=== PATIENT | male | born 1965 | race African-American/Black ===

== ENCOUNTER 2016-06-18 10:40 | Emergency (ER) | payer OTHER ==
[~2016-06-18] VITALS: Ht 185.4 cm; Wt 103.0 kg
[~2016-06-18 10:40] MED LIST: ASPIR 8181 MG PO; ASPIRIN81 M2 PO; CIPROFLOXACIN500 M1 PO; IBUPROFEN 600600 M1 PO; LISINOPRIL20 MG PO; MEDROL DOSPAK21 TAB PO; NAPROSYN500 MG PO; NAPROXEN DELAY500 M1 PO; NORCO 5-325 TA1 EACH PO; PERCOCET 5-3251 EACH PO; PREDNISONE 20 M20 MG PO; ZANTAC 150MG T150 M1 PO; ZOFRAN ODT4 MG PO
[2016-06-18] MEDS ORDERED: NEOMYCIN-POLY-7.5 ML OP (12:27)
[2016-06-18] MEDS ORDERED: AUGMENTIN 875875 MG PO (12:27)
[2016-06-18] MEDS ORDERED: PREDNISONE 20 M20 MG PO (12:27)
[2016-06-18] MEDS ORDERED: FLEXERIL PO (12:27)
[2016-06-18] MEDS ORDERED: ZYRTEC10 M2 PO (12:27)
[2016-06-18 12:42] VITALS: BP 177/108
[2016-06-18] MEDS ORDERED: NORCO 5-325 TA1 EACH PO (12:46)
== END 2016-06-18 12:55 | disposition home or self-care (01) ==
LOC: ER 10:40
DX: S39.012A Strain of muscle, fascia and tendon of lower back, initial encounter (principal); J32.9 Chronic sinusitis, unspecified; H10.9 Unspecified conjunctivitis; I10 Essential (primary) hypertension; F17.210 Nicotine dependence, cigarettes, uncomplicated; F10.99 Alcohol use, unspecified with unspecified alcohol-induced disorder; V49.88XA Car occupant (driver) (passenger) injured in other specified transport accidents, initial encounter; Y93.89 Activity, other specified; Y92.9 Unspecified place or not applicable; Y99.9 Unspecified external cause status

== ENCOUNTER 2016-11-02 00:28 | Emergency (ER) | payer OTHER ==
[~2016-11-02] VITALS: Ht 188 cm; Wt 105.2 kg
[~2016-11-02 00:28] MED LIST changes: +AUGMENTIN 875875 MG PO; +FLEXERIL PO; +NEOMYCIN-POLY-7.5 ML OP; +ZYRTEC10 M2 PO
[2016-11-02 00:50] LABS: HEMATOCRIT 42.4 % (42.0-52.0); HEMOGLOBIN 14.5 gm/dL (14.0-18.0); MCH 35.7 pg (26.0-34.0); MCHC 34.3 g/dL (28.0-37.0); RBC 4.07 mil/uL (4.50-6.00); RDW 14.2 % (10.5-14.5); WBC 12.7 thou/uL (4.0-11.0)
[2016-11-02 00:57] LABS: CALCIUM 8.9 mg/dL (8.5-10.1); CREATININE 1.2 mg/dL (0.7-1.3); POTASSIUM 3.1 mmol/L (3.5-5.1)
[2016-11-02 01:02] LABS: ALBUMIN 3.9 g/dL (3.4-5.0); PROTIME 10.6 Seconds (9.3-11.4); TOTAL BILIRUBIN 0.4 mg/dL (<0.1-1.0); TOTAL PROTEIN 7.9 g/dL (6.4-8.2)
[2016-11-02] MEDS ORDERED: TRAMADOL 50 MG50 MG PO (02:32)
[2016-11-02 02:55] VITALS: BP 137/110
== END 2016-11-02 03:07 ==
LOC: ER 00:28
PROVIDERS: Nurse Practitioner Family
DX: S02.2XXA Fracture of nasal bones, initial encounter for closed fracture (principal); S01.81XA Laceration without foreign body of other part of head, initial encounter; S41.011A Laceration without foreign body of right shoulder, initial encounter; E87.6 Hypokalemia; F10.129 Alcohol abuse with intoxication, unspecified; I10 Essential (primary) hypertension; F17.210 Nicotine dependence, cigarettes, uncomplicated; Y90.7 Blood alcohol level of 200-239 mg/100 ml; Y08.89XA Assault by other specified means, initial encounter; Y93.89 Activity, other specified; Y92.89 Other specified places as the place of occurrence of the external cause; Y99.8 Other external cause status

== ENCOUNTER 2016-12-30 10:30 | Emergency (ER) | payer OTHER ==
[~2016-12-30] VITALS: Ht 188 cm; Wt 100.7 kg
[~2016-12-30 10:30] MED LIST changes: +TRAMADOL 50 MG50 MG PO
[2016-12-30 10:43] VITALS: BP 159/110
== END 2016-12-30 11:05 | disposition home or self-care (01) ==
LOC: ER 10:30
DX: S41.011D Laceration without foreign body of right shoulder, subsequent encounter (principal); I10 Essential (primary) hypertension; F17.210 Nicotine dependence, cigarettes, uncomplicated; F10.99 Alcohol use, unspecified with unspecified alcohol-induced disorder; Z98.890 Other specified postprocedural states; X58.XXXD Exposure to other specified factors, subsequent encounter; Y92.89 Other specified places as the place of occurrence of the external cause; Y99.8 Other external cause status

== ENCOUNTER 2017-01-21 18:48 | Emergency (ER) | payer OTHER ==
[~2017-01-21] VITALS: Ht 188 cm; Wt 108.0 kg
--- NOTE | ~2017-01-21 | EKG ---
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: [place] : 1965 Requested By: Val Gregg Order Number: [id number] MD: Román Hernandez Measurements Intervals [place] Rate: 77 P: 26 [place]: 136 QRS: 0 QRSD: 88 T: 12 QT: 401 QTc: 454 Interpretive Statements Sinus rhythm Baseline wander in lead(s) I,III,aVL Compared to ECG 12/24/2015 03:35:24 No significant change was found Electronically Signed On 01-22-2017 9:04:14 CDT by Román Hernandez [email or web address] <ELECTRONICALLY SIGNED> By: Román Hernandez MD, [facility] 01/22/17 0904 54 Román Hernandez MD, [facility] /EPI
[2017-01-21 19:27] LABS: ABSOLUTE NEUTROPHILS 6.2 thou/uL (1.4-8.2); BASOPHILS 1.6 % (0.0-2.0); EOSINOPHILS 3.8 % (0.0-3.0); HEMATOCRIT 42.1 % (42.0-52.0); HEMOGLOBIN 14.4 gm/dL (14.0-18.0); MCH 34.8 pg (26.0-34.0); MCHC 34.2 g/dL (28.0-37.0); MCV 101.6 fL (80.0-100.0); PLATELET COUNT 243 thou/uL (150-400); POLYS 58.6 % (36.0-66.0); RBC 4.15 mil/uL (4.50-6.00); RDW 13.4 % (10.5-14.5); WBC 10.6 thou/uL (4.0-11.0)
[2017-01-21 19:29] LABS: MANUAL DIFF NO
[2017-01-21 19:37] LABS: ANION GAP 9 mmol/L (7-16); BUN 9 mg/dL (7-18); CALCIUM 8.9 mg/dL (8.5-10.1); CHLORIDE 101 mmol/L (98-107); CO2 28 mmol/L (21-32); CREATININE 1.1 mg/dL (0.7-1.3); GLUCOSE 95 mg/dL (74-106); SODIUM 138 mmol/L (136-145)
[2017-01-21 19:46] LABS: TROPONIN-I < 0.04 ng/mL (<0.04-0.07)
[2017-01-21] MEDS ORDERED: ATIVAN0.5 MG PO (20:15)
[2017-01-21] MEDS ORDERED: CLONIDINE0.1 PO (20:23)
[2017-01-21 20:34] VITALS: BP 160/99
== END 2017-01-21 20:36 | disposition home or self-care (01) ==
LOC: ER 18:48
PROVIDERS: Emergency Medicine
DX: R00.2 Palpitations (principal); I10 Essential (primary) hypertension; F17.210 Nicotine dependence, cigarettes, uncomplicated; F10.99 Alcohol use, unspecified with unspecified alcohol-induced disorder; Z98.890 Other specified postprocedural states

== ENCOUNTER 2017-02-24 18:59 | Emergency (ER) | payer OTHER ==
[~2017-02-24] VITALS: Ht 188 cm; Wt 103.4 kg
[~2017-02-24 18:59] MED LIST changes: +ATIVAN0.5 MG PO; +CLONIDINE0.1 PO
[2017-02-24 20:40] LABS: ABSOLUTE NEUTROPHILS 6.8 thou/uL (1.4-8.2); BASOPHILS 1.2 % (0.0-2.0); EOSINOPHILS 3.7 % (0.0-3.0); HEMATOCRIT 43.8 % (42.0-52.0); HEMOGLOBIN 14.7 gm/dL (14.0-18.0); LYMPHOCYTES 27.4 % (24.0-44.0); MCH 34.2 pg (26.0-34.0); MCHC 33.6 g/dL (28.0-37.0); MCV 101.6 fL (80.0-100.0); MONOCYTES 7.7 % (1.0-8.0); PLATELET COUNT 262 thou/uL (150-400); RBC 4.31 mil/uL (4.50-6.00); RDW 13.4 % (10.5-14.5); WBC 11.4 thou/uL (4.0-11.0)
[2017-02-24 20:41] LABS: MANUAL DIFF NO
[2017-02-24 20:47] LABS: CALCIUM 9.1 mg/dL (8.5-10.1)
[2017-02-24] MEDS ORDERED: KEFLEX500 MG PO (21:42)
[2017-02-24] MEDS ORDERED: HYDROCODONE-AP1 EAC6 PO (21:44)
[2017-02-24 22:14] VITALS: BP 162/105
== END 2017-02-24 22:15 | disposition home or self-care (01) ==
LOC: ER 18:59
PROVIDERS: Physician Assistant
DX: L03.116 Cellulitis of left lower limb (principal); I83.92 Asymptomatic varicose veins of left lower extremity; I10 Essential (primary) hypertension; F17.210 Nicotine dependence, cigarettes, uncomplicated

== ENCOUNTER 2017-03-06 15:17 | Emergency (ER) | payer OTHER ==
[~2017-03-06] VITALS: Ht 188 cm; Wt 103.4 kg
[~2017-03-06 15:17] MED LIST changes: +HYDROCODONE-AP1 EAC6 PO; +KEFLEX500 MG PO
[2017-03-06 15:57] VITALS: BP 167/111
[2017-03-06] MEDS ORDERED: CIPROFLOXIN HC2.5 M1 OPHTHALMIC (16:15)
[2017-03-06] MEDS ORDERED: MOBIC15 MG PO (16:17)
== END 2017-03-06 16:49 | disposition home or self-care (01) ==
LOC: ER 15:17
DX: S05.01XA Injury of conjunctiva and corneal abrasion without foreign body, right eye, initial encounter (principal); I10 Essential (primary) hypertension; F10.99 Alcohol use, unspecified with unspecified alcohol-induced disorder; W45.8XXA Other foreign body or object entering through skin, initial encounter; Y93.89 Activity, other specified; Y92.89 Other specified places as the place of occurrence of the external cause; Y99.8 Other external cause status

== ENCOUNTER 2017-04-30 22:38 | Emergency (ER) | payer OTHER ==
[~2017-04-30] VITALS: Ht 185.4 cm; Wt 104.3 kg
--- NOTE | ~2017-04-30 | EKG ---
[address] [address] ELECTROCARDIOGRAM REPORT Name: ROSENDO LAGUNAS Devan 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: [facility] : 1965 Requested By: Gilberto Mcneil Order Number: [id number] MD: Raheel Hobson Measurements Intervals [place] Rate: 87 P: 46 [place]: 127 QRS: 3 QRSD: 90 T: 16 QT: 389 QTc: 468 Interpretive Statements Sinus rhythm Atrial premature complex Compared to ECG 01/21/2017 18:55:05 Atrial premature complex(es) now present Electronically Signed On 05-01-2017 11:31:50 OPERATOR COATING FURNACE by Raheel Hobson [email or web address] <ELECTRONICALLY SIGNED> By: Raheel Hobson MD 05/01/17 1131 D: [id number] 17 Raheel Hobson MD /YENNIFER
[~2017-04-30 22:38] MED LIST changes: +CIPROFLOXIN HC2.5 M1 OPHTHALMIC; +MOBIC15 MG PO
[2017-04-30 23:37] LABS: ABSOLUTE NEUTROPHILS 8.1 thou/uL (1.4-8.2); BASOPHILS 1.2 % (0.0-2.0); EOSINOPHILS 2.2 % (0.0-3.0); HEMATOCRIT 39.7 % (42.0-52.0); HEMOGLOBIN 13.4 gm/dL (14.0-18.0); LYMPHOCYTES 22.8 % (24.0-44.0); MCHC 33.7 g/dL (28.0-37.0); MONOCYTES 5.4 % (1.0-8.0); PLATELET COUNT 242 thou/uL (150-400); POLYS 68.4 % (36.0-66.0); RBC 3.93 mil/uL (4.50-6.00); RDW 14.2 % (10.5-14.5); WBC 11.8 thou/uL (4.0-11.0)
[2017-04-30 23:40] LABS: ANION GAP 13 mmol/L (7-16); BUN 17 mg/dL (7-18); CHLORIDE 102 mmol/L (98-107); CO2 25 mmol/L (21-32); CREATININE 1.2 mg/dL (0.7-1.3); GLUCOSE 115 mg/dL (74-106); POTASSIUM 3.6 mmol/L (3.5-5.1); SODIUM 140 mmol/L (136-145)
[2017-04-30 23:44] LABS: MANUAL DIFF NO
[2017-04-30 23:48] LABS: ALBUMIN 3.4 g/dL (3.4-5.0); ALKALINE PHOSPHATASE 71 U/L (46-116); MAGNESIUM 1.9 mg/dL (1.8-2.4); SGOT 74 U/L (15-37); SGPT 38 U/L (30-65); TOTAL BILIRUBIN 0.4 mg/dL (<0.1-1.0); TOTAL PROTEIN 7.1 g/dL (6.4-8.2); TROPONIN-I < 0.04 ng/mL (<0.06)
[2017-04-30 23:54] LABS: APTT 34.5 Seconds (24.5-32.8); PROTIME 10.1 Seconds (9.3-11.4)
[2017-05-01 01:34] VITALS: BP 139/91
== END 2017-05-01 01:35 | disposition left against medical advice (07) ==
LOC: ER 22:38
PROVIDERS: Emergency Medicine
DX: R00.2 Palpitations (principal); R20.0 Anesthesia of skin; I10 Essential (primary) hypertension; M25.512 Pain in left shoulder; K46.9 Unspecified abdominal hernia without obstruction or gangrene; F17.210 Nicotine dependence, cigarettes, uncomplicated

== ENCOUNTER 2018-08-14 19:08 | Emergency (ER) | payer OTHER ==
[~2018-08-14] VITALS: Ht 185.4 cm; Wt 108.0 kg
[2018-08-14 19:46] LABS: HEMATOCRIT 40.8 % (42.0-52.0); MCH 34.9 pg (26.0-34.0); MCHC 34.4 g/dL (28.0-37.0); MCV 101.5 fL (80.0-100.0); RBC 4.01 mil/uL (4.50-6.00); RDW 14.3 % (10.5-14.5); WBC 9.7 thou/uL (4.0-11.0)
[2018-08-14 19:59] LABS: ANION GAP 7 mmol/L (7-16); BUN 13 mg/dL (7-18); CHLORIDE 102 mmol/L (98-107); CO2 30 mmol/L (21-32); GLUCOSE 101 mg/dL (74-106); POTASSIUM 3.8 mmol/L (3.5-5.1); SODIUM 139 mmol/L (136-145)
[2018-08-14 20:07] LABS: ALBUMIN 3.5 g/dL (3.4-5.0); SGOT 35 U/L (15-37); SGPT 54 U/L (30-65); TOTAL BILIRUBIN 0.3 mg/dL (<0.1-1.0); TOTAL PROTEIN 7.5 g/dL (6.4-8.2); TROPONIN-I <0.06 ng/mL (<0.06)
[2018-08-14] MEDS ORDERED: MOBIC15 MG PO (20:26)
[2018-08-14] MEDS ORDERED: NORFLEX100 MG PO (20:26)
[2018-08-14 21:15] VITALS: BP 179/97
--- NOTE | 2018-08-16 08:11 | EKG ---
[place] [address] [facility] [place] [address] ELECTROCARDIOGRAM REPORT Name: ROSENDO LAGUNAS [facility] Room #: [facility]#: [id number] ������������������ Admission: 08/14/18 ������������������ Attend Phys: Discharge: 08/14/18 ������������������ Date of : 69 Report #: [id number] ����������������������������������������������������������������� [id number] THIS REPORT FOR: //name// [facility] ED Test Date: 2018-08-14 Test Time: 19:30:00 Pat Name: ROSENDO LAGUNAS Department: Room: Gender: M 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 Manager: FLEX : 1965 Requested By: Lashae Ornelas Order Number: [id number] MD: Román Hernandez Measurements Intervals [place] Rate: 80 P: 33 [place]: 142 QRS: -5 QRSD: 92 T: 13 QT: 377 QTc: 435 Interpretive Statements Sinus rhythm No significant abnormality Compared to ECG 04/30/2017 23:18:19 Atrial premature complex(es) no longer present Electronically Signed On 08-16-2018 8:10:50 CDT by Román Hernandez [email or web address] ��������������������������������������������� <ELECTRONICALLY SIGNED> ���������������������������������������� By: Román Hernandez MD, [facility] ��������������������������������������������� 08/16/18 0810 29 29 Román Hernandez MD, FAC /EPI
== END 2018-08-14 21:22 | disposition home or self-care (01) ==
LOC: ER 19:08
PROVIDERS: Physician Assistant
DX: I10 Essential (primary) hypertension (principal); M25.512 Pain in left shoulder; M54.32 Sciatica, left side; M70.911 Unspecified soft tissue disorder related to use, overuse and pressure, right shoulder; F17.210 Nicotine dependence, cigarettes, uncomplicated

== ENCOUNTER 2019-01-03 21:29 | Emergency (ER) | payer OTHER ==
[~2019-01-03] VITALS: Ht 188 cm; Wt 106.1 kg
[~2019-01-03 21:29] MED LIST changes: +NORFLEX100 MG PO
[2019-01-03] MEDS ORDERED: AZO STANDARD95 MG PO (21:38)
[2019-01-03 21:40] LABS: URINE BILIRUBIN NEGATIVE (Negative); URINE BLOOD NEGATIVE (Negative); URINE CLARITY CLEAR; URINE COLOR YELLOW; URINE GLUCOSE-RANDOM* 1+ (Negative); URINE KETONES NEGATIVE (Negative); URINE LEUKOCYTES-REFLEX NEGATIVE (Negative); URINE PROTEIN (DIPSTICK) 1+ (Negative)
[2019-01-03 21:41] LABS: URINE NITRITE-REFLEX POSITIVE (Negative)
[2019-01-03 21:48] LABS: CASTS None Seen /LPF (None Seen); CRYSTALS None Seen /LPF (None Seen); SQUAMOUS 4-10 Moderate /LPF (0-3)
[2019-01-03 21:49] LABS: BACTERIA-REFLEX 1-9 Few /HPF (None Seen); URINE RBC None Seen /HPF (0-2); URINE WBC-REFLEX None Seen /HPF (0-5)
[2019-01-03 22:15] LABS: BASOPHILS 0.9 % (0.0-2.0); EOSINOPHILS 1.6 % (0.0-3.0); HEMATOCRIT 42.9 % (42.0-52.0); HEMOGLOBIN 14.7 gm/dL (14.0-18.0); LYMPHOCYTES 17.9 % (24.0-44.0); MCH 34.5 pg (26.0-34.0); MCHC 34.2 g/dL (28.0-37.0); MCV 100.8 fL (80.0-100.0); MONOCYTES 4.8 % (1.0-8.0); PLATELET COUNT 251 thou/uL (150-400); POLYS 74.8 % (36.0-66.0); RBC 4.25 mil/uL (4.50-6.00); RDW 14.2 % (10.5-14.5); WBC 13.4 thou/uL (4.0-11.0)
[2019-01-03 22:18] LABS: CALCIUM 9.5 mg/dL (8.5-10.1); CREATININE 1.1 mg/dL (0.7-1.3); POTASSIUM 3.5 mmol/L (3.5-5.1)
[2019-01-03 22:26] LABS: ALBUMIN 3.6 g/dL (3.4-5.0); TOTAL BILIRUBIN 0.4 mg/dL (<0.1-1.0); TOTAL PROTEIN 7.9 g/dL (6.4-8.2)
[2019-01-04] MEDS ORDERED: KEFLEX500 M1 PO (00:20)
[2019-01-04] MEDS ORDERED: NORCO 5-325 TA1 EAC1 PO (00:20)
[2019-01-04 01:17] VITALS: BP 141/102
== END 2019-01-04 01:25 | disposition home or self-care (01) ==
LOC: ER 21:29
PROVIDERS: Emergency Medicine
DX: N39.0 Urinary tract infection, site not specified (principal); F17.210 Nicotine dependence, cigarettes, uncomplicated; I10 Essential (primary) hypertension; Z79.899 Other long term (current) drug therapy; Z98.890 Other specified postprocedural states

== ENCOUNTER 2019-06-17 20:16 | Emergency (ER) | payer OTHER ==
[~2019-06-17] VITALS: Ht 185.4 cm; Wt 95.3 kg
[~2019-06-17 20:16] MED LIST changes: +AZO STANDARD95 MG PO; +KEFLEX500 M1 PO; +NORCO 5-325 TA1 EAC1 PO
[2019-06-17] MEDS ORDERED: NORCO 5-325 TA1 EAC1 PO (21:40)
[2019-06-17 21:50] VITALS: BP 156/98
== END 2019-06-17 21:50 | disposition home or self-care (01) ==
LOC: ER 20:16
DX: M25.561 Pain in right knee (principal); M25.562 Pain in left knee; I10 Essential (primary) hypertension; F17.210 Nicotine dependence, cigarettes, uncomplicated

== ENCOUNTER 2019-07-16 04:44 | Emergency (ER) | payer OTHER ==
[~2019-07-16] VITALS: Ht 185.4 cm; Wt 108.9 kg
[2019-07-16] MEDS ORDERED: NORVASC 2.5 MG2.5 M1 PO (05:03)
[2019-07-16 05:18] LABS: ABSOLUTE NEUTROPHILS 7.4 thou/uL (1.4-8.2); BASOPHILS 1.2 % (0.0-2.0); EOSINOPHILS 3.7 % (0.0-3.0); HEMATOCRIT 44.6 % (42.0-52.0); HEMOGLOBIN 15.2 gm/dL (14.0-18.0); LYMPHOCYTES 28.9 % (24.0-44.0); MCHC 34.1 g/dL (28.0-37.0); MCV 102.8 fL (80.0-100.0); MONOCYTES 5.3 % (1.0-8.0); PLATELET COUNT 274 thou/uL (150-400); POLYS 60.9 % (36.0-66.0); RBC 4.33 mil/uL (4.50-6.00); WBC 12.1 thou/uL (4.0-11.0)
[2019-07-16 05:45] LABS: ANION GAP 12 mmol/L (7-16); BUN 11 mg/dL (7-18); CALCIUM 8.8 mg/dL (8.5-10.1); CHLORIDE 99 mmol/L (98-107); CO2 26 mmol/L (21-32); CREATININE 1.2 mg/dL (0.7-1.3); GLUCOSE 123 mg/dL (74-106); POTASSIUM 4.5 mmol/L (3.5-5.1); SODIUM 137 mmol/L (136-145)
[2019-07-16 05:54] LABS: MAGNESIUM 1.9 mg/dL (1.8-2.4); TROPONIN-I <0.06 ng/mL (<0.06)
[2019-07-16 06:11] VITALS: BP 176/104
--- NOTE | 2019-07-20 12:33 | EKG ---
[facility] [place] [address] ELECTROCARDIOGRAM REPORT Name: ROSENDO LAGUNAS III Room #: [facility]#: [id number] Admission: 07/16/19 Attend Phys: Discharge: 07/16/19 Date of : [birth year] Report #: [id number] THIS REPORT FOR: cc: Marah Weber MD, Karla L. MD Lundgren, Craig H. 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: [place] : 1965 Requested By: Gene Keller Order Number: [id number] MD: Román Hernandez Measurements Intervals [place] Rate: 77 P: 37 MA: 141 QRS: 3 QRSD: 89 T: 18 QT: 402 QTc: 455 Interpretive Statements Sinus rhythm Anteroseptal infarct, old Compared to ECG 08/14/2018 19:30:00 Septal Q waves are now present Electronically Signed On 07-18-2019 7:21:49 RAW STOCK MACHINE FEEDER by Román Hernandez [email or web address] <ELECTRONICALLY SIGNED> By: Román Hernandez MD, FACC 07/18/19 0721 0503 0503 Román Hernandez MD, [facility] /EPI
== END 2019-07-16 06:14 | disposition home or self-care (01) ==
LOC: ER 04:44
PROVIDERS: Emergency Medicine
DX: I10 Essential (primary) hypertension (principal); R11.2 Nausea with vomiting, unspecified; F17.290 Nicotine dependence, other tobacco product, uncomplicated

== ENCOUNTER 2019-12-31 02:16 | Emergency (ER) | payer OTHER ==
[~2019-12-31] VITALS: Ht 182.9 cm; Wt 106.1 kg
[~2019-12-31 02:16] MED LIST changes: +NORVASC 2.5 MG2.5 M1 PO
[2019-12-31] MEDS ORDERED: TRIMETHOPRIM /P10 M1 OPHTHALMIC (03:41)
[2019-12-31] MEDS ORDERED: NORCO 5-325 TA1 EAC2 PO (03:41)
[2019-12-31 04:02] VITALS: BP 149/99
== END 2019-12-31 04:03 | disposition home or self-care (01) ==
LOC: ER 02:16
DX: S05.01XA Injury of conjunctiva and corneal abrasion without foreign body, right eye, initial encounter (principal); I10 Essential (primary) hypertension; F17.210 Nicotine dependence, cigarettes, uncomplicated; Z79.899 Other long term (current) drug therapy; Z98.890 Other specified postprocedural states; X58.XXXA Exposure to other specified factors, initial encounter; Y93.89 Activity, other specified; Y92.096 Garden or yard of other non-institutional residence as the place of occurrence of the external cause; Y99.9 Unspecified external cause status

== ENCOUNTER 2020-02-08 09:39 | Emergency (ER) | payer OTHER ==
[~2020-02-08] VITALS: Ht 185.4 cm; Wt 109.8 kg
[~2020-02-08 09:39] MED LIST changes: +NORCO 5-325 TA1 EAC2 PO; +TRIMETHOPRIM /P10 M1 OPHTHALMIC
[2020-02-08 10:35] LABS: HEMATOCRIT 41.8 % (42.0-52.0); HEMOGLOBIN 14.3 gm/dL (14.0-18.0); MCH 34.4 pg (26.0-34.0); MCHC 34.3 g/dL (28.0-37.0); MCV 100.3 fL (80.0-100.0); PLATELET COUNT 293 thou/uL (150-400); RBC 4.16 mil/uL (4.50-6.00); RDW 14.2 % (10.5-14.5); WBC 9.5 thou/uL (4.0-11.0)
[2020-02-08 10:53] LABS: ANION GAP 8 mmol/L (7-16); BUN 7 mg/dL (7-18); CALCIUM 9.6 mg/dL (8.5-10.1); CHLORIDE 102 mmol/L (98-107); CO2 29 mmol/L (21-32); CREATININE 1.1 mg/dL (0.7-1.3); GLUCOSE 107 mg/dL (74-106); SODIUM 139 mmol/L (136-145)
[2020-02-08 11:04] LABS: ALBUMIN 3.7 g/dL (3.4-5.0); LIPASE 63 U/L (73-393); MAGNESIUM 1.8 mg/dL (1.8-2.4); SGOT 23 U/L (15-37); SGPT 32 U/L (30-65); TOTAL BILIRUBIN 0.4 mg/dL (0.2-1.0); TOTAL PROTEIN 7.6 g/dL (6.4-8.2); TROPONIN-I <0.06 ng/mL (<0.06)
[2020-02-08 11:26] LABS: ABSOLUTE NEUTROPHILS 5.9 thou/uL (1.4-8.2); ANISOCYTOSIS SLIGHT; ATYPICAL LYMPHS 3 %
[2020-02-08] MEDS ORDERED: PEPCID20 MG PO (11:34)
[2020-02-08] MEDS ORDERED: NAPROSYN500 MG PO (11:34)
[2020-02-08 12:13] VITALS: BP 154/90
--- NOTE | 2020-02-09 07:41 | EKG ---
[facility] [place] [address] ELECTROCARDIOGRAM REPORT Name: ROSENDO LAGUNAS III Room #: [facility]#: [id number] Admission: 02/08/20 Attend Phys: Discharge: 02/08/20 Date of : 69 Report #: [id number] THIS REPORT FOR: cc: Marah Weber MD, Karla L. MD Lundgren, Craig H. 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: : 1965 Requested By: Gilberto Mcneil Order Number: [id number] MD: Román Hernandez Measurements Intervals [place] Rate: 74 P: 30 [place]: 146 QRS: 3 QRSD: 88 T: 13 QT: 415 QTc: 461 Interpretive Statements Sinus rhythm Normal tracing Compared to ECG 07/16/2019 05:03:48 Myocardial infarct finding no longer present Electronically Signed On 02-09-2020 7:41:16 CDT by Román Hernandez [email or web address] <ELECTRONICALLY SIGNED> By: Román Hernandez MD, [facility] 02/09/20 0741 1029 1029 Román Hernandez MD, [facility] /EPI
== END 2020-02-08 12:20 | disposition home or self-care (01) ==
LOC: ER 09:39
PROVIDERS: Emergency Medicine
DX: R07.89 Other chest pain (principal); K59.00 Constipation, unspecified; R55 Syncope and collapse; I10 Essential (primary) hypertension; F17.210 Nicotine dependence, cigarettes, uncomplicated; Z79.899 Other long term (current) drug therapy

== ENCOUNTER 2020-05-04 06:45 | Emergency (ER) | payer OTHER ==
[~2020-05-04] VITALS: Ht 185.4 cm; Wt 109.8 kg
[~2020-05-04 06:45] MED LIST changes: +PEPCID20 MG PO
[2020-05-04 06:47] VITALS: BP 131/92
[2020-05-04] MEDS ORDERED: KETOROLAC 0.5% E5 ML OPHTHALMIC (07:49)
== END 2020-05-04 07:50 | disposition home or self-care (01) ==
LOC: ER 06:45
DX: H11.151 Pinguecula, right eye (principal); I10 Essential (primary) hypertension; F17.210 Nicotine dependence, cigarettes, uncomplicated; Z79.899 Other long term (current) drug therapy

== ENCOUNTER 2020-07-02 13:13 | Emergency (ER) | payer OTHER ==
[~2020-07-02] VITALS: Ht 185.4 cm; Wt 105.2 kg
[~2020-07-02 13:13] MED LIST changes: +KETOROLAC 0.5% E5 ML OPHTHALMIC
[2020-07-02 13:42] LABS: ABSOLUTE NEUTROPHILS 5.8 thou/uL (1.4-8.2); BASOPHILS 1.1 % (0.0-2.0); EOSINOPHILS 2.2 % (0.0-3.0); HEMATOCRIT 38.7 % (42.0-52.0); HEMOGLOBIN 13.2 gm/dL (14.0-18.0); LYMPHOCYTES 13.4 % (24.0-44.0); MCH 34.6 pg (26.0-34.0); MCHC 34.1 g/dL (28.0-37.0); MCV 101.7 fL (80.0-100.0); MONOCYTES 12.2 % (1.0-8.0); PLATELET COUNT 255 thou/uL (150-400); POLYS 71.1 % (36.0-66.0); RDW 14.3 % (10.5-14.5); WBC 8.2 thou/uL (4.0-11.0)
[2020-07-02 13:49] LABS: ANION GAP 11 mmol/L (7-16); BUN 23 mg/dL (7-18); CALCIUM 8.8 mg/dL (8.5-10.1); CHLORIDE 100 mmol/L (98-107); CO2 22 mmol/L (21-32); CREATININE 1.6 mg/dL (0.7-1.3); GLUCOSE 127 mg/dL (74-106); SODIUM 133 mmol/L (136-145)
[2020-07-02 13:54] LABS: POTASSIUM 3.9 mmol/L (3.5-5.1)
[2020-07-02 13:58] LABS: ALBUMIN 3.5 g/dL (3.4-5.0); SGOT 53 U/L (15-37); SGPT 57 U/L (16-63); TOTAL BILIRUBIN 0.2 mg/dL (0.2-1.0); TOTAL PROTEIN 7.7 g/dL (6.4-8.2); TROPONIN-I <0.06 ng/mL (<0.06)
--- NOTE | 2020-07-02 14:00 | EKG ---
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
[2020-07-02 14:49] LABS: DIRECT BILIRUBIN < 0.1 mg/dL (<0.1-0.2)
[2020-07-02 18:07] VITALS: BP 149/85
== END 2020-07-02 18:08 | disposition home or self-care (01) ==
LOC: ER 13:13
PROVIDERS: Emergency Medicine
DX: R07.89 Other chest pain (principal); F17.210 Nicotine dependence, cigarettes, uncomplicated; I10 Essential (primary) hypertension; Z79.899 Other long term (current) drug therapy

== ENCOUNTER 2020-08-26 20:29 | Emergency (ER) | payer OTHER ==
[~2020-08-26] VITALS: Ht 185.4 cm; Wt 105.2 kg
[2020-08-26 21:02] LABS: HEMATOCRIT 41.6 % (42.0-52.0); HEMOGLOBIN 14.1 gm/dL (14.0-18.0); MCH 34.5 pg (26.0-34.0); MCHC 33.9 g/dL (28.0-37.0); MCV 101.8 fL (80.0-100.0); PLATELET COUNT 283 thou/uL (150-400); RBC 4.08 mil/uL (4.50-6.00); RDW 13.9 % (10.5-14.5)
[2020-08-26 21:17] LABS: LIPASE 89 U/L (73-393); MAGNESIUM 1.7 mg/dL (1.8-2.4); TROPONIN-I <0.06 ng/mL (<0.06)
[2020-08-26 21:42] LABS: ABSOLUTE NEUTROPHILS 4.6 thou/uL (1.4-8.2); ATYPICAL LYMPHS 1 %
[2020-08-26 21:58] LABS: CREATININE 1.1 mg/dL (0.7-1.3)
[2020-08-26 22:03] LABS: ALBUMIN 3.8 g/dL (3.4-5.0); TOTAL BILIRUBIN 0.3 mg/dL (0.2-1.0); TOTAL PROTEIN 8.2 g/dL (6.4-8.2)
[2020-08-26 22:35] LABS: PHOSPHORUS 2.3 mg/dL (2.6-4.7)
[2020-08-26 23:01] VITALS: BP 171/101
--- NOTE | 2020-08-27 07:25 | EKG ---
[place] [address] [facility] [place] [address] ELECTROCARDIOGRAM REPORT Name: ROSENDO LAGUNAS III [facility] [id number] Admission: 08/26/20 Attend Phys: Discharge: 08/26/20 Date of : [birth year] Report #: [id number] [facility] ED Test Date: 2020-08-26 Test Time: 20:37:07 Pat Name: ROSENDO LAGUNAS Department: Room: Gender: Yarn Comber: dunia : 1965 Requested By: Karolina Mejia Order Number: [id number] MD: Bart Gleason Measurements Intervals [place] Rate: 95 P: 9 IN: 128 QRS: -2 QRSD: 89 T: -1 QT: 365 QTc: 459 Interpretive Statements Sinus rhythm Borderline T abnormalities, inferior leads Baseline wander in lead(s) II,III,aVF Compared to ECG 07/02/2020 13:18:13 T-wave abnormality now present ST (T wave) deviation now present Poor R-wave progression no longer present Electronically Signed On 08-27-2020 7:25:30 CDT by Bart Gleason [email or web address] <ELECTRONICALLY SIGNED> By: Bart Gleason MD, FACC 08/27/20 0725 36 36 Bart Gleason MD, [facility] /EPI
== END 2020-08-26 23:02 | disposition home or self-care (01) ==
LOC: ER 20:29
DX: E86.0 Dehydration (principal); F10.10 Alcohol abuse, uncomplicated; E83.42 Hypomagnesemia; I10 Essential (primary) hypertension; F17.210 Nicotine dependence, cigarettes, uncomplicated; Z79.899 Other long term (current) drug therapy; Y90.0 Blood alcohol level of less than 20 mg/100 ml

== ENCOUNTER 2020-11-06 01:44 | Emergency (ER) | payer OTHER ==
[~2020-11-06] VITALS: Ht 185.4 cm; Wt 109.8 kg
[2020-11-06 01:46] VITALS: BP 180/108
[2020-11-06] MEDS ORDERED: NORCO 10-325 T1 EACH PO (02:36)
[2020-11-06] MEDS ORDERED: IBUPROFEN 800800 MG PO (02:36)
--- NOTE | 2020-11-06 07:15 | EKG ---
[place] [address] [place] [address] ELECTROCARDIOGRAM REPORT Name: ROSENDO LAGUNAS III Room #: [facility]#: [id number] Admission: 11/06/20 Attend Phys: Discharge: 11/06/20 Date of : [birth year] Report #: [id number] [facility] ED Test Date: 2020-11-06 Test Time: 01:56:54 Pat Name: ROSENDO LAGUNAS Department: Room: Gender: Varnish Melter: IRIS : 1965 Requested By: Reji Downs Order Number: [id number] MD: Bart Gleason Measurements Intervals [place] Rate: 69 P: 27 [place]: 142 QRS: 13 QRSD: 97 T: 30 QT: 400 QTc: 429 Interpretive Statements Sinus rhythm Probable left atrial enlargement Probable anteroseptal infarct, old Compared to ECG 08/26/2020 20:37:07 Myocardial infarct finding now present T-wave abnormality no longer present Electronically Signed On 11-06-2020 7:15:12 CDT by Bart Gleason [email or web address] <ELECTRONICALLY SIGNED> By: Bart Gleason MD, [facility] 11/06/20 0715 5 5 Bart Gleason MD, [facility] /EPI
== END 2020-11-06 02:44 | disposition home or self-care (01) ==
LOC: ER 01:44
DX: S46.812A Strain of other muscles, fascia and tendons at shoulder and upper arm level, left arm, initial encounter (principal); I10 Essential (primary) hypertension; F17.210 Nicotine dependence, cigarettes, uncomplicated; X50.1XXA Overexertion from prolonged static or awkward postures, initial encounter; Y93.89 Activity, other specified; Y92.89 Other specified places as the place of occurrence of the external cause; Y99.8 Other external cause status

== ENCOUNTER 2020-12-13 12:17 | Emergency (ER) | payer OTHER ==
[~2020-12-13] VITALS: Ht 185.4 cm; Wt 105.2 kg
[~2020-12-13 12:17] MED LIST changes: +IBUPROFEN 800800 MG PO; +NORCO 10-325 T1 EACH PO
[2020-12-13] MEDS ORDERED: ULTRAM 50MG TAB50 MG PO (14:04)
[2020-12-13 14:12] VITALS: BP 156/98
== END 2020-12-13 14:12 | disposition home or self-care (01) ==
LOC: ER 12:17
DX: S16.1XXA Strain of muscle, fascia and tendon at neck level, initial encounter (principal); S39.012A Strain of muscle, fascia and tendon of lower back, initial encounter; S89.92XA Unspecified injury of left lower leg, initial encounter; I10 Essential (primary) hypertension; F17.210 Nicotine dependence, cigarettes, uncomplicated; Z79.899 Other long term (current) drug therapy; W01.0XXA Fall on same level from slipping, tripping and stumbling without subsequent striking against object, initial encounter; Y93.89 Activity, other specified; Y92.89 Other specified places as the place of occurrence of the external cause; Y99.8 Other external cause status

== ENCOUNTER 2021-02-16 17:05 | Emergency (ER) | payer OTHER ==
[~2021-02-16] VITALS: Ht 185.4 cm; Wt 104.3 kg
[~2021-02-16 17:05] MED LIST changes: +ULTRAM 50MG TAB50 MG PO
[2021-02-16 17:54] LABS: ABSOLUTE NEUTROPHILS 7.3 thou/uL (1.4-8.2); EOSINOPHILS 3.2 % (0.0-3.0); HEMATOCRIT 41.2 % (42.0-52.0); HEMOGLOBIN 13.7 gm/dL (14.0-18.0); LYMPHOCYTES 20.1 % (24.0-44.0); MCH 33.7 pg (26.0-34.0); MCHC 33.3 g/dL (28.0-37.0); MCV 101.2 fL (80.0-100.0); PLATELET COUNT 267 thou/uL (150-400); POLYS 69.7 % (36.0-66.0); RBC 4.07 mil/uL (4.50-6.00); RDW 14.2 % (10.5-14.5); WBC 10.4 thou/uL (4.0-11.0)
[2021-02-16 18:01] LABS: CALCIUM 8.9 mg/dL (8.5-10.1); CREATININE 1.4 mg/dL (0.7-1.3); POTASSIUM 4.2 mmol/L (3.5-5.1)
[2021-02-16 18:11] LABS: ALBUMIN 3.5 g/dL (3.4-5.0); TOTAL BILIRUBIN 0.3 mg/dL (0.2-1.0); TOTAL PROTEIN 7.5 g/dL (6.4-8.2)
[2021-02-16 18:59] LABS: URINE BILIRUBIN NEGATIVE (Negative); URINE BLOOD NEGATIVE (Negative); URINE CLARITY CLEAR; URINE COLOR YELLOW; URINE GLUCOSE-RANDOM* NEGATIVE (Negative); URINE KETONES NEGATIVE (Negative); URINE LEUKOCYTES-REFLEX NEGATIVE (Negative); URINE NITRITE-REFLEX NEGATIVE (Negative); URINE PROTEIN (DIPSTICK) NEGATIVE (Negative); URINE UROBILINOGEN 0.2 E.U./dl (0.2-1.0)
[2021-02-16 19:18] VITALS: BP 143/89
--- NOTE | 2021-02-17 11:54 | EKG ---
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
== END 2021-02-16 19:21 | disposition home or self-care (01) ==
LOC: ER 17:05
PROVIDERS: Physician Assistant
DX: E86.0 Dehydration (principal); Z20.822 Contact with and (suspected) exposure to COVID-19; R53.83 Other fatigue; I10 Essential (primary) hypertension; F17.210 Nicotine dependence, cigarettes, uncomplicated; Z79.899 Other long term (current) drug therapy

== ENCOUNTER 2021-07-05 00:43 | Emergency (ER) | payer OTHER ==
[~2021-07-05] VITALS: Ht 185.4 cm; Wt 108.9 kg
[2021-07-05 01:21] LABS: ABSOLUTE NEUTROPHILS 6.8 thou/uL (1.4-8.2); EOSINOPHILS 2.9 % (0.0-3.0); HEMATOCRIT 37.2 % (42.0-52.0); LYMPHOCYTES 32.1 % (24.0-44.0); MCH 35.3 pg (26.0-34.0); MCHC 34.9 g/dL (28.0-37.0); MCV 101.2 fL (80.0-100.0); PLATELET COUNT 288 thou/uL (150-400); RBC 3.68 mil/uL (4.50-6.00); RDW 14.3 % (10.5-14.5); WBC 12.2 thou/uL (4.0-11.0)
[2021-07-05 01:29] LABS: CALCIUM 8.8 mg/dL (8.5-10.1); CREATININE 1.5 mg/dL (0.7-1.3); POTASSIUM 4.3 mmol/L (3.5-5.1)
[2021-07-05 04:23] VITALS: BP 138/92
--- NOTE | 2021-07-05 10:00 | EKG ---
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: : 1965 Requested By: Caesar Lowe Order Number: [id number] MD: Bart Gleason Measurements Intervals [place] Rate: 81 P: 34 PA: 139 QRS: 21 QRSD: 90 T: 32 QT: 381 QTc: 443 Interpretive Statements Sinus rhythm Atrial premature complex Probable anteroseptal infarct, old Compared to ECG 07/05/2021 00:53:22 Ectopic atrial rhythm no longer present T-wave abnormality no longer present Myocardial infarct finding still present Electronically Signed On 07-05-2021 10:00:25 BARRER AND TACKER by Bart Gleason [email or web address] <ELECTRONICALLY SIGNED> By: Bart Gleason MD, [facility] 07/05/21 1000 025 6 Bart Gleason MD, FAC /EPI
--- NOTE | 2021-07-05 10:00 | EKG ---
[facility] [place] [address] ELECTROCARDIOGRAM REPORT Name: ROSENDO LAGUNAS III Room #: 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: : 1965 Requested By: Caesar Lowe Order Number: [id number] MD: Bart Gleason Measurements Intervals [place] Rate: 91 P: 152 ME: 131 QRS: -7 QRSD: 104 T: 97 QT: 347 QTc: 427 Interpretive Statements Sinus or ectopic atrial rhythm Atrial premature complex Probable left atrial enlargement Low voltage, extremity leads Probable anteroseptal infarct, old, possibly lead placement Nonspecific T abnormalities, lateral leads Compared to ECG 02/16/2021 17:14:51 Ectopic atrial rhythm now present Low QRS voltage now present Electronically Signed On 07-05-2021 10:00:16 BUSINESS INTELLIGENCE ADMINISTRATOR by Bart Gleason [email or web address] <ELECTRONICALLY SIGNED> By: Bart Gleason MD, FACC 07/05/21 1000 Bart Gleason MD, [facility] /EPI
== END 2021-07-05 04:24 | disposition home or self-care (01) ==
LOC: ER 00:43
PROVIDERS: Student in an Organized Health Care Education/Training Program
DX: M25.512 Pain in left shoulder (principal); Z20.822 Contact with and (suspected) exposure to COVID-19; I10 Essential (primary) hypertension; F17.210 Nicotine dependence, cigarettes, uncomplicated; Z79.899 Other long term (current) drug therapy